=== PATIENT | male | born 2000 | race Two or more races ===

== ENCOUNTER 2022-05-27 15:58 | Emergency (ER) | payer OTHER ==
[2022-05-27] MEDS ORDERED: KETOROLAC TROMETHAMINE 30 MG/1 ML VIAL IVPUSH ONE (16:09)
[2022-05-27] MEDS ORDERED: SODIUM CHLORIDE 1,000 ML IV STA (16:09)
[2022-05-27] MEDS ORDERED: METOCLOPRAMIDE HCL INJECTION 10 MG/2 ML VIAL IVPB ONE (16:09)
[2022-05-27 16:24] VITALS: BMI 25.8
[2022-05-27] MEDS ORDERED: METOCLOPRAMIDE HCL INJECTION 10 MG/2 ML VIAL ONE (16:24)
[2022-05-27] MEDS ORDERED: KETOROLAC TROMETHAMINE 30 MG/1 ML VIAL ONE (16:24)
[2022-05-27 18:01] VITALS: BP 122/86; PULSE 98; RESP 16; TEMP 99.3
== END 2022-05-27 18:05 | disposition home or self-care (01) ==
LOC: FER 15:58
PROC: 3E033GC Introduction of Other Therapeutic Substance into Peripheral Vein, Percutaneous Approach (ICD-10-PCS; principal; 2022-05-27)
DX: B34.9 Viral infection, unspecified (principal)
CPT/HCPCS: 0241U-QW; 99284-25